=== PATIENT | female | born 1990 | race Caucasian/White ===

== ENCOUNTER 2019-05-23 12:10 | Observation (INO) | payer MEDICAID | END 2019-05-23 13:55 | disposition home or self-care (01) | DRG 566 | LOC: EDSEX 12:10 → LDRP 12:10 | PROVIDERS: ADMIT Obstetrics & Gynecology; ATTEND Obstetrics & Gynecology | DX: O62.9 Abnormality of forces of labor, unspecified (principal); Z3A.27 27 weeks gestation of pregnancy | CPT/HCPCS: 59025; 81002; G0378 ==